=== PATIENT | female | born 1985 | race Caucasian/White ===

== ENCOUNTER 2018-08-21 21:48 | Emergency (ER) | payer OTHER, SELFPAY ==
[2018-08-21 22:05] VITALS: BP 155/91; PULSE 92; RESP 16; TEMP 36.7; O2SAT 100
--- NOTE | 2018-08-21 22:52 | W.ED.GENAD ---
Discharge Plan Disposition Patient Disposition: HOME Condition: Good Discharge Details Chief Complaint: Cellulitis Clinical Impression: Saphenous vein clot Primary Care Provider: Alec Ashton ED Provider: Kyle Cross [place] Meds and New Rx's Prescriptions: New Eliquis 5 mg tablet See Rx Instructions .ROUTE .COMPLEX Qty: 30 RF: 0 Continued levothyroxine 137 MCG tablet 137 mcg PO DAILY RF: 0 Mirena 20 mcg/24 hr (5 years) Intrauterine Device 1 insert INTRAUTERINE ONCE RF: 0 Discharge Instructions Additional Instructions: Workup tonight suggest a clot in the saphenous vein but because of size and location would treat as a deep clot. We will have you come back for ultrasound for confirmation in the morning. In the meantime we will start you on Eliquis which is the treatment for clot. Recommend Tylenol for pain, warm compresses to the area, elevation of leg as much as possible for the next couple of days. Not starting antibiotics at this point as you have a normal white count and no fever and the redness is probably related to inflammation not infection. Do not take nonsteroidal medications. You will need follow-up with your primary care next week. You will follow-up in the ED after ultrasound. You should return to ED if you develop chest pain, shortness of breath, fainting, fever. Stand Alone Forms: Work Release Referrals: Alec Ashton [Primary Care Provider] - Medical Decision Making Patient presenting with pain and redness behind the left knee medially. She is afebrile. She has no complaints of chest pain or shortness of breath. She has no calf tenderness. Differential includes saphenous vein clot versus abscess. Less likely related to Jamil's cyst but given the medial area doubt. test is negative. IV established and she is given Toradol for pain relief. Laboratory studies sent. Bedside ultrasound performed by me suggest that this is likely saphenous vein clot and not abscess. I am able to follow what appears to be the saphenous vein proximal and distal to the area of tenderness. The vein is compressible except in the area of tenderness. I do not think it is an abscess. CBC is fine. White count is normal. Platelets are normal. Kidney function normal. Initial coags normal. Long discussion with the patient in regards to blood thinners. Will have her come back for a formal ultrasound tomorrow. We will have her follow-up in the ED. We will start her on Eliquis in the meantime. While this is not a DVT it appears to be very proximal in the saphenous vein and appears to be quite large. Current recommendations are to treat as same as DVT even though technically saphenous vein thrombophlebitis. We will not start antibiotics at this point despite the redness. She is afebrile and has normal white count. We will have her do warm compresses, keep elevated and use Tylenol for pain. Since she is following up in the ED tomorrow can have a recheck to be sure the erythema is not progressing or she is having evidence of systemic illness. Will need follow up with PCP next week. Lab Data Lab results reviewed: Yes I reviewed the patient's lab results. HPI General Mode of arrival: ambulatory. Date/Time Provider Initiated Documentation: 08/21/18 22:31. Limitations to Documentation: no limitations. Information obtained by: patient. HPI Narrative: Patient presents to ED with pain and redness behind her left knee. She noticed a little bit of redness yesterday. Today she has had increasing pain and difficulty walking. Redness is a little bit worse. Pain seems to shoot down the back of her leg with walking. Otherwise it is isolated to the back of the knee where the redness is. She denies any fevers or chills. She denies chest pain or shortness of breath. She does not smoke. She is on Mirena. There is a family history of DVT and PE. She has never had one previously. She denies any trauma. She presents now for evaluation due to the increasing pain. Related Data Home Medications Medication Instructions Recorded Confirmed levothyroxine 137 mcg PO DAILY 04/12/14 08/21/18 Mirena 1 insert INTRAUTERINE ONCE 08/21/18 08/21/18 apixaban [Eliquis] See Rx Instructions .ROUTE 08/22/18 .COMPLEX #30 tab Previous Rx's Medication Instructions Recorded apixaban [Eliquis] See Rx Instructions .ROUTE 08/22/18 .COMPLEX #30 tab Allergies Allergy/AdvReac Type Severity Reaction Status Date / Time amoxicillin [Amoxicillin] Allergy Intermediate Hives Unverified 08/21/18 22:08 General Stated Complaint: Cellulitis STELLA: 3 Review of Systems Constitutional Denies chills, Denies fever(s), Denies headache(s), Denies malaise and Denies weakness Eyes Denies change in vision, Denies eye discharge, Denies irritation and Denies eye pain ENT Denies headache(s) and Denies neck pain Cardiovascular Denies chest pain, Denies pedal edema, Denies edema, Denies leg edema, Denies lightheadedness, Denies palpitations and Denies dyspnea Respiratory Denies cough, Denies hemoptysis and Denies dyspnea Gastrointestinal Denies abdominal pain, Denies melena, Denies hematochezia, Denies diarrhea, Denies nausea and Denies vomiting Genitourinary Denies abnormal vaginal bleeding, Denies hematuria, Denies urinary frequency, Denies difficulty voiding, Denies dysuria, Denies pelvic pain, Denies urinary urgency and Denies vaginal discharge Musculoskeletal Denies back pain, Denies myalgias, Denies arthralgias, Denies joint swelling, Denies neck pain, Denies numbness and Reports other (left leg pain) Integumentary/Breasts Reports erythema and Denies rash Neurologic Denies confusion, Denies headache(s), Denies numbness and Denies weakness Psychiatric Denies confusion Endocrine Denies palpitations [facility] Medical History Anemia (Chronic) Hypothyroidism (Chronic) Surgical History S/P cholecystectomy (Inactive) Ligation of fallopian tube (Inactive) Social History Smoking/Tobacco Use Status: Former Tobacco Use Exam Const General: cooperative and comfortable Nutritional Appearance: obese morbidly obese Orientation: alert and oriented x3 [facility] Head: normocephalic and atraumatic Neck Neck: normal visual inspection, trachea midline and supple Resp Effort & Inspection: normal respiratory effort Cardio Pulses: normal peripheral pulses Skin General skin exam: erythema (about a 3 by 6 cm area of redness medial posterior left knee) Rashes: no rashes Neuro General: alert, oriented x3, CN's II-XI intact bilaterally and normal sensation to monofilament Extrem General: full ROM, no calf tenderness, no edema and other (Very tender/firm mass in the erythematous region behind the left knee) Course Vital Signs Temperature 98.1 F 08/21/18 22:05 Pulse 92 H 08/21/18 22:05 Respiratory Rate 16 08/21/18 22:05 Blood Pressure 155/91 H 08/21/18 22:05 Pulse Oximetry 100 08/21/18 22:05 Temperature 98.1 F 08/21/18 22:05 Pulse 92 H 08/21/18 22:05 Respiratory Rate 16 08/21/18 22:05 Respiratory Effort 08/21/18 22:07 Blood Pressure 155/91 H 08/21/18 22:05 Pulse Oximetry 100 08/21/18 22:05 Oxygen Delivery Method Room Air 08/21/18 22:05 Oxygen Flow Rate 0 08/21/18 22:05 Pain Level 8 08/21/18 22:05
[2018-08-21 23:04] LABS: Abs Immature Grans 0.02 k/cumm (0.0-0.09); Absolute Basophil Count 0.02 k/cumm (0.0-0.2); Absolute Eosinophil Count 0.13 k/cumm (0.0-0.7); Absolute Lymphocyte Count 2.38 k/cumm (1.2-3.4); Absolute Monocyte Count 0.81 k/cumm (0.11-0.7); Absolute Neutrophil Count 6.35 k/cumm (1.2-6.7); Basophils % 0.2; Eosinophils % 1.3; HCT 37.6 % (36.0-46.0); HGB 12.1 g/dL (12.0-15.5); Immature Grans % 0.2; Lymphocytes % 24.5; Mean Corp. HGB Concentration 32.2 g/dL (32.0-36.0); Mean Corpuscular Hemoglobin 24.9 pg (27.0-33.0); Mean Corpuscular Volume 77.5 fL (80-95); Mean Platelet Volume 9.6 fL (8.0-11.0); Monocytes % 8.3; Neutrophils % 65.5; Platelet Count 330 x1000/uL (130-400); RBC 4.85 m/cumm (4.00-5.20); RBC Distribution Width 13.6 % (11.7-14.6); White Blood Cell Count 9.71 k/cumm (4.4-10.8)
[2018-08-21 23:10] LABS: Anion Gap 9.4 mmol/L (3-11); BUN 25 mg/dL (7-18); CO2 26.6 mmol/L (21.0-32.0); CREATININE 0.76 mg/dL (0.55-1.02); Calcium 9.2 mg/dL (8.5-10.1); Chloride 100 mmol/L (98-107); Glucose 90 mg/dL (70-100); Potassium 3.7 mmol/L (3.5-5.1); Sodium 136 mmol/L (136-145)
[2018-08-21] MEDS: Ketorolac 30 MG/ML VIAL IVP (23:21)
[2018-08-21 23:39] LABS: Prothrombin Time 9.7 sec (9.3-11.0)
[2018-08-22 00:03] VITALS: BP 123/63; PULSE 84; RESP 16; O2SAT 98
[2018-08-22] MEDS: Apixaban 5 MG TAB 10 MG PO (00:03)
== END 2018-08-22 00:19 | disposition home or self-care (01) ==
PROVIDERS: Emergency Provider Emergency Medicine; PCP Family Medicine
DX: I82.812 Embolism and thrombosis of superficial veins of left lower extremity (principal); Z83.2 Family history of diseases of the blood and blood-forming organs and certain disorders involving the immune mechanism
CPT/HCPCS: 36415; 80048; 81025; 96374; 99283; 85025; 85610; 85730; J1885

== ENCOUNTER 2018-08-22 09:32 | Outpatient (CLI) | payer OTHER, SELFPAY ==
--- NOTE | 2018-08-22 13:02 | DI.US_ITS ---
SYMPTOMS/DIAGNOSIS: LT LEG PAIN, REDNESS, BEDSIDE US SUGGESTS SAPHENOUS CLOT LEFT LEG ULTRASOUND: There is no evidence of DVT. Note is made of a superficial varicosity posterior to the distal thigh which contains visible thrombus. There is poor compression. The varicose vein lies above the knee. These findings were conveyed to the ER provider immediately following completion of the study.
== END 2018-08-22 09:52 ==
PROVIDERS: PCP Family Medicine; Visit Provider Emergency Medicine
DX: M79.605 Pain in left leg (principal); L53.9 Erythematous condition, unspecified; I83.892 Varicose veins of left lower extremity with other complications
CPT/HCPCS: 93971

== ENCOUNTER 2018-08-22 14:03 | Emergency (ER) | payer OTHER, SELFPAY ==
[2018-08-22 14:18] VITALS: BP 133/77; PULSE 76; RESP 16; TEMP 36.8; O2SAT 98
--- NOTE | 2018-08-22 15:40 | W.ED.GENAD ---
Discharge Plan Disposition Patient Disposition: HOME Condition: Stable Discharge Details Chief Complaint: Recheck Clinical Impression: Superficial thrombophlebitis Primary Care Provider: Alec Ashton ED Provider: Beltran Raya Home Meds and New Rx's Prescriptions: New ibuprofen [IBU] 600 mg tablet 600 mg PO QID PRN (Reason: pain) Qty: 20 RF: 0 Continued levothyroxine 137 MCG tablet 137 mcg PO DAILY RF: 0 Mirena 20 mcg/24 hr (5 years) Intrauterine Device 1 insert INTRAUTERINE ONCE RF: 0 Discontinued Eliquis 5 mg tablet See Rx Instructions .ROUTE .COMPLEX Qty: 30 RF: 0 Discharge Instructions Instructions: Superficial Thrombophlebitis (ED) Additional Instructions: Return to the emergency department for any new or significant worsening symptoms. Otherwise continue to use ibuprofen as directed and apply warm compresses. You may increase activity as tolerated by discomfort and follow-up with your primary care provider as already arranged. Stand Alone Forms: Work Release Referrals: Alec Ashton [Primary Care Provider] - (Keep your appointment as scheduled) Discharge Data Discharge Date/Time-TO BE ENTERED AT DEPARTURE: 08/22/18 15:55 Medical Decision Making Patient presenting to the emergency department chief complaint of left leg pain. Patient was seen in the emergency department last night and concern for possible DVT so patient was recommended for return today for ultrasound. Ultrasound imaging was performed and patient sent to the emergency department. Patient continues to complain of similar pain with no new or worsening symptoms. Physical exam shows significant discomfort to the posterior left distal thigh with palpable cord. Review of ultrasound imaging along with radiologist interpretation shows no evidence of DVT, no saphenous vein involvement, and appears to be a superficial thrombophlebitis associated with a varicose vein. No DVT and some localized redness that I do not feel is associated cellulitis but simple inflammatory response patient was placed up on ibuprofen 600 mg every 6 hours as needed for pain, and informed to perform warm compresses, and to keep her follow-up appointment with her primary care provider on August 28. Patient encouraged to return for any new or worsening symptoms which were thoroughly discussed with her. After discussion of diagnosis and plan of care patient has no further needs, questions, or concerns and states clear understanding to return to the emergency department for any worsening symptoms. Imaging Data Radiologic Study: Imaging: Ultrasound Radiologist's impression: There is no evidence of DVT. Note is made of a superficial varicosity posterior to the distal thigh which contains visible thrombus. There is poor compression. The varicose vein lies above the knee HPI General Mode of arrival: wheelchair. Date/Time Provider Initiated Documentation: 08/22/18 15:25. Limitations to Documentation: no limitations. Information obtained by: patient. History of Present Illness 32 year old F presents to the emergency department with the chief complaint of left leg, described as severe, Quality is described as sharp, and is localized to the left and upper extremity. and it has been constant. Patient notes no other symptoms.. Patient did receive the following treatments prior to arrival, none Related Data Home Medications Medication Instructions Recorded Confirmed levothyroxine 137 mcg PO DAILY 04/12/14 08/22/18 Mirena 1 insert INTRAUTERINE ONCE 08/21/18 08/22/18 ibuprofen [IBU] 600 mg PO QID PRN #20 tab 08/22/18 Previous Rx's Medication Instructions Recorded ibuprofen [IBU] 600 mg PO QID PRN #20 tab 08/22/18 Allergies Allergy/AdvReac Type Severity Reaction Status Date / Time amoxicillin [Amoxicillin] Allergy Intermediate Hives Unverified 08/21/18 22:08 General Stated Complaint: Recheck STELLA: 4 Review of Systems Constitutional Denies chills, Denies fever(s) and Denies headache(s) ENT Denies headache(s) Cardiovascular Denies chest pain, Denies irregular heart rhythm, Denies claudication, Denies leg edema, Denies lightheadedness and Denies dyspnea Respiratory Denies dyspnea Gastrointestinal Denies abdominal pain Musculoskeletal Reports as per HPI Neurologic Reports confusion and Denies headache(s) Psychiatric Reports confusion [facility] Medical History Anemia (Chronic) Hypothyroidism (Chronic) Surgical History Ligation of fallopian tube (Inactive) S/P cholecystectomy (Inactive) Social History Smoking/Tobacco Use Status: Former Tobacco Use Exam Const General: cooperative, healthy appearing, comfortable and no acute distress Orientation: alert, awake and oriented x3 Resp Effort & Inspection: normal respiratory effort and able to speak in complete sentences Cardio Rate: regular rate Rhythm: regular rhythm Pulses: normal peripheral pulses Neuro General: alert, awake, oriented x3, moves all extremities and no focal motor deficits Extrem General: normal exam except as noted Left lower extremity: hip/thigh Details: tenderness Location: other (Distal medial posterior thigh), normal ROM and other (Palpable cord Posterior medial distal thigh) and lower leg Course Vital Signs Temperature 36.8 C 08/22/18 14:18 Pulse 76 08/22/18 14:18 Respiratory Rate 16 08/22/18 14:18 Blood Pressure 133/77 08/22/18 14:18 Pulse Oximetry 98 08/22/18 14:18 Temperature 36.8 C 08/22/18 14:18 Temperature Source Skin 08/22/18 14:18 Pulse 76 08/22/18 14:18 Respiratory Rate 16 08/22/18 14:18 Respiratory Effort 08/22/18 14:22 Blood Pressure 133/77 08/22/18 14:18 Blood Pressure Position Sitting 08/22/18 14:18 Pulse Oximetry 98 08/22/18 14:18 Oxygen Delivery Method Room Air 08/22/18 14:18 Oxygen Flow Rate 0 08/22/18 14:18 Pain Level 9 08/22/18 14:18
--- NOTE | 2018-08-22 15:44 | ED.GENADUL_ITS ---
Discharge Plan Disposition Patient Disposition: HOME Condition: Stable Discharge Details Chief Complaint: Recheck Clinical Impression: Superficial thrombophlebitis Primary Care Provider: Alec Ashton ED Provider: Beltran Raya Home Meds and New Rx's Prescriptions: New ibuprofen [IBU] 600 mg tablet 600 mg PO QID PRN (Reason: pain) Qty: 20 RF: 0 Continued levothyroxine 137 MCG tablet 137 mcg PO DAILY RF: 0 Mirena 20 mcg/24 hr (5 years) Intrauterine Device 1 insert INTRAUTERINE ONCE RF: 0 Discontinued Eliquis 5 mg tablet See Rx Instructions .ROUTE .COMPLEX Qty: 30 RF: 0 Discharge Instructions Instructions: Superficial Thrombophlebitis (ED) Additional Instructions: Return to the emergency department for any new or significant worsening symptoms. Otherwise continue to use ibuprofen as directed and apply warm comp resses. You may increase activity as tolerated by discomfort and follow-up with your primary care provider as already arranged. Stand Alone Forms: Work Release Referrals: Alec Ashton [Primary Care Provider] - (Keep your appointment as scheduled) Discharge Data Discharge Date/Time-TO BE ENTERED AT DEPARTURE: 08/22/18 15:55 Medical Decision Making Patient presenting to the emergency department chief complaint of left leg pain. Patient was seen in the emergency department last night and concern for possible DVT so patient was recommended for return today for ultrasound. Ultrasound imaging was performed and patient sent to the emergency department. Patient continues to complain of similar pain with no new or worsening symptoms. Physical exam shows significant discomfort to the posterior left distal thigh with palpable cord. Review of ultrasound imaging along with radiologist interpretation shows no evidence of DVT, no saphenous vein involvement, and appears to be a superficial thrombophlebitis associated with a varicose vein. No DVT and some localized redness that I do not feel is associated cellulitis but simple inflammatory response patient was placed up on ibuprofen 600 mg every 6 hours as needed for pain, and informed to perform warm compresses, and to keep her follow-up appointment with her primary care provider on August 28. Patient encouraged to return for any new or worsening symptoms which were thoroughly discussed with her. After discussion of diagnosis and plan of care patient has no further needs, questions, or concerns and states clear understanding to return to the emergency department for any worsening symptoms. Imaging Data Radiologic Study: Imaging: Ultrasound Radiologist's impression: There is no evidence of DVT. Note is made of a superficial varicosity posterior to the distal thigh which contains visible thrombus. There is poor compression. The varicose vein lies above the knee HPI General Mode of arrival: wheelchair . Date/Time Provider Initiated Documentation: 08/22/18 15:25 . Limitations to Documentation: no limitations . Information obtained by: patient . History of Present Illness 32 year old F presents to the emergency department with the chief complaint of left leg, described as severe, Quality is described as sharp, and is localized to the left and upper extremity. and it has been constant. Patient notes no other symptoms.. Patient did receive the following treatments prior to arrival, none Related Data Home Medications Medication Instructions Recorded Confirmed levothyroxine 137 mcg PO DAILY 04/12/14 08/22/18 Mirena 1 insert INTRAUTERINE ONCE 08/21/18 08/22/18 ibuprofen [IBU] 600 mg PO QID PRN #20 tab 08/22/18 Previous Rx's Medication Instructions Recorded ibuprofen [IBU] 600 mg PO QID PRN #20 tab 08/22/18 Allergies Allergy/AdvReac Type Severity Reaction Status Date / Time amoxicillin [Amoxicillin] Allergy Intermediate Hives Unverified 08/21/18 22:08 General Stated Complaint: Recheck STELLA: 4 Review of Systems Constitutional Denies chills, Denies fever(s) and Denies headache(s) ENT Denies headache(s) Cardiovascular Denies chest pain, Denies irregular heart rhythm, Denies claudication, Denies leg edema, Denies lightheadedness and Denies dyspnea Respiratory Denies dyspnea Gastrointestinal Denies abdominal pain Musculoskeletal Reports as per HPI Neurologic Reports confusion and Denies headache(s) Psychiatric Reports confusion [facility] Medical History Anemia (Chronic) Hypothyroidism (Chronic) Surgical History Ligation of fallopian tube (Inactive) S/P cholecystectomy (Inactive) Social History Smoking/Tobacco Use Status: Former Tobacco Use Exam Const General: cooperative, healthy appearing, comfortable and no acute distress Orientation: alert, awake and oriented x3 Resp Effort & Inspection: normal respiratory effort and able to speak in complete sentences Cardio Rate: regular rate Rhythm: regular rhythm Pulses: normal peripheral pulses Neuro General: alert, awake, oriented x3, moves all extremities and no focal motor deficits Extrem General: normal exam except as noted Left lower extremity: hip/thigh Details: tenderness Location: other (Distal medial posterior thigh), normal ROM and other (Palpable cord Posterior medial distal thigh) and lower leg Course Vital Signs Temperature 36.8 C 08/22/18 14:18 Pulse 76 08/22/18 14:18 Respiratory Rate 16 08/22/18 14:18 Blood Pressure 133/77 08/22/18 14:18 Pulse Oximetry 98 08/22/18 14:18 Temperature 36.8 C 08/22/18 14:18 Temperature Source Skin 08/22/18 14:18 Pulse 76 08/22/18 14:18 Respiratory Rate 16 08/22/18 14:18 Respiratory Effort 08/22/18 14:22 Blood Pressure 133/77 08/22/18 14:18 Blood Pressure Position Sitting 08/22/18 14:18 Pulse Oximetry 98 08/22/18 14:18 Oxygen Delivery Method Room Air 08/22/18 14:18 Oxygen Flow Rate 0 08/22/18 14:18 Pain Level 9 08/22/18 14:18
[2018-08-22] MEDS: Ibuprofen 600 MG TAB PO (15:55)
== END 2018-08-22 15:55 | disposition home or self-care (01) ==
PROVIDERS: Emergency Provider Nurse Practitioner Family; PCP Family Medicine
DX: I80.02 Phlebitis and thrombophlebitis of superficial vessels of left lower extremity (principal); Z71.2 Person consulting for explanation of examination or test findings
CPT/HCPCS: 99283; 99282

== ENCOUNTER 2019-03-26 13:57 | Outpatient (REF) | payer OTHER, SELFPAY ==
--- NOTE | 2019-03-26 12:40 | PAPFT_PTH ---
PATIENT: Theresa Rose LOC: [facility] U#:[id number] AGE/SX: 33/F ROOM: RE03/26/[address]: Alec Ashton : 1985 BED: DIS: 03/26/2019 SPEC #: [id number] RECD: 03/27/19 13:11 STATUS: [place]ETTE REQ #: [id number] ARTEMIO: 03/26/19 12:[address]: Alec Ashton DEPT: [facility] Cytology RECD BY: Shell Meeks Tissues: 1 - CX/ENDOCX FOR PAP SMEARS Procedures: PAP THIN PREP/UVM Screening HPV DNA PROBE Comments: [id number]
== END 2019-03-26 14:17 ==
LOC: NCHCN 13:57
PROVIDERS: PCP Family Medicine; Visit Provider Family Medicine
DX: Z00.00 Encounter for general adult medical examination without abnormal findings (principal); Z12.4 Encounter for screening for malignant neoplasm of cervix; Z11.51 Encounter for screening for human papillomavirus (HPV)
CPT/HCPCS: 88142; 87624

== ENCOUNTER 2019-05-19 07:26 | Outpatient (CLI) | payer OTHER, SELFPAY ==
[2019-05-19 08:41] LABS: HCT 36.2 % (36.0-46.0); HGB 11.6 g/dL (12.0-15.5); Mean Corpuscular Hemoglobin 25.7 pg (27.0-33.0); Mean Corpuscular Volume 80.3 fL (80-95); Platelet Count 322 x1000/uL (130-400); RBC 4.51 m/cumm (4.00-5.20); RBC Distribution Width 13.9 % (11.7-14.6); White Blood Cell Count 5.66 k/cumm (4.4-10.8)
[2019-05-19 08:56] LABS: Iron 36 ug/dL (50-175); Total Iron Binding Capacity 317 ug/dL (250-450); Transferrin Sat 11 % (15-50)
[2019-05-19 09:11] LABS: Anion Gap 6.1 mmol/L (3-11); BUN 11 mg/dL (7-18); CO2 29.9 mmol/L (21.0-32.0); CREATININE 0.79 mg/dL (0.55-1.02); Calcium 9.1 mg/dL (8.5-10.1); Chloride 103 mmol/L (98-107); Ferritin 94 ng/mL (8-388); Glucose 103 mg/dL (70-100); Potassium 4.7 mmol/L (3.5-5.1); Sodium 139 mmol/L (136-145); TSH (W/Ref FT4) 2.77 uIU/mL (0.36-3.74)
== END 2019-05-19 07:46 ==
PROVIDERS: PCP Family Medicine; Visit Provider Family Medicine
DX: D50.9 Iron deficiency anemia, unspecified (principal); R60.0 Localized edema
CPT/HCPCS: 36415; 80048; 85027; 82728; 83540; 83550; 83735; 84443

== ENCOUNTER 2019-06-12 15:16 | Emergency (ER) | payer OTHER, SELFPAY ==
[2019-06-12 15:31] VITALS: BP 129/82; PULSE 71; RESP 16; TEMP 36.5; O2SAT 100
--- NOTE | 2019-06-12 15:47 | ED.GENADUL_ITS ---
Discharge Plan Disposition Patient Disposition: HOME Condition: Stable Discharge Details Chief Complaint: Abd Prob Clinical Impression: Abdominal pain Primary Care Provider: Alec Ashton ED Provider: Danyel Andrews Home Meds and New Rx's Prescriptions: New ondansetron 4 mg tablet,disintegrating 4 mg PO Q8H PRN (Reason: nausea and vomiting) Qty: 30 RF: 0 Continued levothyroxine 137 MCG tablet 137 mcg PO DAILY RF: 0 Mirena 20 mcg/24 hr (5 years) Intrauterine Device 1 insert INTRAUTERINE ONCE RF: 0 ibuprofen [IBU] 600 mg tablet 600 mg PO QID PRN (Reason: pain) Qty: 20 RF: 0 Discharge Instructions Instructions: Abdominal Pain (ED) Additional Instructions: your lab work showed no concerning findings your cat scan showed evidence of a viral gastroenteritis if symptoms continue in a week follow up with your primary care provider and if you feel more ill, have persistent vomit or severe worsening pain return to the emergency department Stand Alone Forms: Work Release Medical Decision Making 33 yo female with prior hx of cholecystectomy comes in with abdominal pain. She states she has had loose stools and nausea for 2 weeks then today developed right sided abdominal pain. Has pain in the ruq and rlq without guarding or rebound. No chest pain, denies vaginal bleeding or discharge, no urinary symptoms. Given location of pain will obtain lab work and imaging to eval for appendicitis and sbo among other pathology pt's labs unremarkable and ct shows mesenteric adenitis otherwise no acute findings. Will d/c home and advised f/u with pcp, return precautions given,non longer has tenderness in the abdomen Differential Diagnosis Differential Diagnosis: sbo, diverticulitis, appendicitis Imaging Data Radiologic Study: Attestation: I personally reviewed and interpreted this imaging study as follows: Imaging: CT Scan Radiologist's impression: IMPRESSION: 1. Mesenteric enteritis. 2. IUD in place. 3. Cholecystectomy. Common bile duct measures 1.1 cm. Lab Data Lab results reviewed: Yes I reviewed the patient's lab results. HPI General Mode of arrival: ambulatory . Date/Time Provider Initiated Documentation: 06/12/19 15:32 . Limitations to Documentation: no limitations . Information obtained by: patient . History of Present Illness 33 year old F presents to the emergency department with the chief complaint of abdominal pain, described as moderate, Quality is described as aching, Patient started experiencing this day(s) (1) and it has been constant. No relieving factors improve symptom(s), No exacerbating factors reported . Patient did receive the following treatments prior to arrival, none Related Data Home Medications Medication Instructions Recorded Confirmed levothyroxine 137 mcg PO DAILY 04/12/14 06/12/19 Mirena 1 insert INTRAUTERINE ONCE 08/21/18 06/12/19 ibuprofen [IBU] 600 mg PO QID PRN #20 tab 08/22/18 06/12/19 ondansetron 4 mg PO Q8H PRN #30 tab 06/12/19 Previous Rx's Medication Instructions Recorded ibuprofen [IBU] 600 mg PO QID PRN #20 tab 08/22/18 ondansetron 4 mg PO Q8H PRN #30 tab 06/12/19 Allergies Allergy/AdvReac Type Severity Reaction Status Date / Time amoxicillin [Amoxicillin] Allergy Intermediate Hives Unverified 06/12/19 15:34 General Stated Complaint: Abd Prob STELLA: 3 Review of Systems Review of Systems ROS Unobtainable: All systems reviewed & are unremarkable except as noted in HPI and below Constitutional Constitutional: Denies chills, Denies fever(s) and Denies weakness ENT Ears, Nose, Mouth, and Throat: Denies change in voice Cardiovascular Cardiovascular: Denies chest pain and Denies dyspnea Respiratory Respiratory: Denies dyspnea Musculoskeletal Musculoskeletal: Denies joint swelling Neurologic Neurologic: Denies weakness [facility] Social History Smoking/Tobacco Use Status: Former Tobacco Use Alcohol Intake: never Drug use: Occasionally Substance use type: marijuana Do you feel safe in your relationship?: Yes Exam Const General: no acute distress Orientation: alert HENMT Head: normal to inspection Ears: external ears normal General nose exam: external nose normal Mouth: moist mucous membranes Eyes General: appearance normal, both eyes and all related structures Neck Neck: normal visual inspection Resp Effort & Inspection: normal respiratory effort and able to speak in complete sentences Cardio Rate: regular rate GI Palpation: soft Skin General skin exam: no rashes or lesions noted Neuro General: alert and oriented x3 Extrem General: normal to inspection Psych Mental Status: mental status grossly normal Course Vital Signs Vital signs: Vital Signs Temperature 36.5 C 06/12/19 15:31 Pulse 71 06/12/19 15:31 Respiratory Rate 16 06/12/19 15:31 Blood Pressure 129/82 06/12/19 15:31 Pulse Oximetry 100 06/12/19 15:31 Temperature 36.5 C 06/12/19 15:31 Temperature Source Skin 06/12/19 15:31 Pulse 71 06/12/19 15:31 Respiratory Rate 16 06/12/19 15:31 Respiratory Effort Non-Labored 06/12/19 15:31 Blood Pressure 129/82 06/12/19 15:31 Blood Pressure Position Sitting 06/12/19 15:31 Pulse Oximetry 100 06/12/19 15:31 Oxygen Delivery Method Room Air 06/12/19 15:31 Oxygen Flow Rate 0 06/12/19 15:31 Pain Level 8 06/12/19 15:31
[2019-06-12] MEDS: Normal Saline 1,000 ML 1000 ML IV (16:15)
[2019-06-12] MEDS: Normal Saline Flush 10 ML SYR IVP (16:15)
[2019-06-12] MEDS: Ketorolac 15 MG/ML VIAL IVP (16:26)
[2019-06-12] MEDS: Ondansetron 4 MG/2 ML VIAL IVP (16:27)
[2019-06-12 16:32] LABS: Bilirubin Negative (Negative); Blood Large (Negative); Clarity Sl Cloudy (Clear); Glucose Negative (Negative); Ketones Negative (Negative); Leukocyte Esterase Negative (Negative); Nitrite Negative (Negative); Specific Gravity 1.025 (1.005-1.025); Urobilinogen 0.2 EU/dL (Up TO 0.2)
[2019-06-12 16:39] LABS: ALT 24 U/L (14-59); AST 16 U/L (15-37); Albumin 3.4 g/dL (3.4-5.0); Alkaline Phosphatase 73 U/L (46-116); Anion Gap 7.8 mmol/L (3-11); BUN 14 mg/dL (7-18); Bilirubin, Total 0.3 mg/dL (0.2-1.0); CO2 27.2 mmol/L (21.0-32.0); CREATININE 0.74 mg/dL (0.55-1.02); Calcium 8.2 mg/dL (8.5-10.1); Chloride 105 mmol/L (98-107); Glucose 91 mg/dL (70-100); Lipase 76 U/L (73-393); Magnesium 1.6 mg/dL (1.8-2.4); Potassium 3.4 mmol/L (3.5-5.1); Sodium 140 mmol/L (136-145); Total Protein 6.9 g/dL (6.4-8.2)
[2019-06-12] MEDS: Omnipaque 350 MG/ML 100 ML BTL IJ (16:39)
[2019-06-12 16:44] LABS: Abs Immature Grans 0.02 k/cumm (0.0-0.09); Absolute Basophil Count 0.02 k/cumm (0.0-0.2); Absolute Eosinophil Count 0.06 k/cumm (0.0-0.7); Absolute Lymphocyte Count 1.27 k/cumm (1.2-3.4); Absolute Monocyte Count 0.61 k/cumm (0.11-0.7); Absolute Neutrophil Count 5.76 k/cumm (1.2-6.7); Basophils % 0.3; Eosinophils % 0.8; HCT 35.6 % (36.0-46.0); HGB 11.3 g/dL (12.0-15.5); Immature Grans % 0.3; Lymphocytes % 16.4; Mean Corp. HGB Concentration 31.7 g/dL (32.0-36.0); Mean Corpuscular Hemoglobin 25.1 pg (27.0-33.0); Mean Corpuscular Volume 79.1 fL (80-95); Mean Platelet Volume 9.8 fL (8.0-11.0); Monocytes % 7.9; Neutrophils % 74.3; Platelet Count 323 x1000/uL (130-400); RBC Distribution Width 13.2 % (11.7-14.6); White Blood Cell Count 7.74 k/cumm (4.4-10.8)
--- NOTE | 2019-06-12 16:45 | DI.CT_ITS ---
EXAM: CT ABDOMEN PELVIS W CLINICAL HISTORY: right sided abdominal pain TECHNIQUE: Post IV contrast. No oral contrast. COMPARISON: ABD PELVIS WO CONTRAST from 04/19/2014 FINDINGS: The heart size is normal. The lung bases are clear. Patient is status post cholecystectomy. The s pleen, pancreas, adrenals and kidneys are unremarkable. There are mildly enlarged mesenteric lymph no fer and slight stranding in the mesenteric fat, consistent with mesenteric adenitis. There is no bow el dilatation or inflammatory change. The appendix appears normal. An IUD is incidentally noted in the uterus. The bladder is unremarkable. IMPRESSION: Mesenteric adenitis.
[2019-06-12 17:02] LABS: Bacteria Negative HPF (Negative); C & S Indicated? No; Casts Negative LPF (Negative); Crystals Negative HPF (Negative); Epithelial Cells Moderate HPF (Negative); Mucus Negative (Negative); Other Cells Negative (Negative); RBC 20-50 (0-2); WBC Negative HPF (0-5)
[2019-06-12] MEDS: Prochlorperazine 10 MG/2 ML VIAL IVP (17:23)
--- NOTE | 2019-06-12 17:26 | DI.VRAD_ITS ---
PROCEDURE INFORMATION: Exam: CT Abdomen And Pelvis With Contrast Exam date and time: 06/12/2019 3:47 PM Clinical history: 33 years old, female; Localized; Right; Patient HX: Abdominal pain x2 weeks, pain increasing. TECHNIQUE: Imaging protocol: Computed tomography of the abdomen and pelvis with intravenous contrast. Radiation optimization: All CT scans at this facility use at least one of these dose optimization techniques: automated exposure control; mA and/or kV adjustment per patient size (includes targeted exams where dose is matched to clinical indication); or iterative reconstruction. Contrast material: OMNIPAQUE 350; Contrast volume: 100 ml; Contrast route: IV; COMPARISON: CT ABD PELVIS WO CONTRAST 19/04/2014 08:03 FINDINGS: Lungs: Lung bases are clear. Liver: Normal. No mass. Gallbladder and bile ducts: Cholecystectomy. Distended common bile duct measuring 1.1 cm. Pancreas: Normal. No ductal dilation. Spleen: Normal. No splenomegaly. Adrenals: Normal. No mass. Kidneys and ureters: Normal. No hydronephrosis. Stomach and bowel: Unremarkable. No obstruction. No mucosal thickening. Appendix: No evidence of appendicitis. Intraperitoneal space: No free air in the abdomen. Vasculature: Unremarkable. No abdominal aortic aneurysm. Lymph nodes: Multiple enlarged mesenteric lymph nodes consistent with mesenteric enteritis. Bladder: Unremarkable as visualized. Reproductive: IUD in place. Bones/joints: Mild degenerative changes of the thoracic and lumbar spine. Soft tissues: Unremarkable. IMPRESSION: 1. Mesenteric enteritis. 2. IUD in place. 3. Cholecystectomy. Common bile duct measures 1.1 cm. Dictated and Authenticated by: Harper Meza MD. Ordering:ZAYDA Montaño MD
[2019-06-12 17:44] VITALS: BP 104/54; PULSE 68; TEMP 36.9; O2SAT 97
[2019-06-12 17:47] VITALS: BP 104/54; PULSE 68; TEMP 36.9; O2SAT 97
== END 2019-06-12 17:54 | disposition home or self-care (01) ==
PROVIDERS: Emergency Provider Emergency Medicine; PCP Family Medicine
DX: R10.11 Right upper quadrant pain (principal); R10.31 Right lower quadrant pain; R19.7 Diarrhea, unspecified; Z98.890 Other specified postprocedural states
CPT/HCPCS: 36415; 80053; 81025; 83690; 96361; 96374; 96375; 99285; 74177; 81003; 81015; 83735; 85025; 99284; J0780; J1885; J2405; J3490

== ENCOUNTER 2020-04-12 07:56 | Outpatient (REF) | payer OTHER, SELFPAY ==
[2020-04-12 20:14] LABS: Iron 54 ug/dL (50-170); Magnesium 1.9 mg/dL (1.8-2.4); TSH (W/Ref FT4) 1.72 uIU/mL (0.36-3.74); Total Iron Binding Capacity 318 ug/dL (250-450); Transferrin Sat 17 % (15-50)
== END 2020-04-12 08:16 ==
LOC: NCHCN 07:56
PROVIDERS: PCP Family Medicine; Visit Provider Family Medicine
DX: E83.42 Hypomagnesemia (principal); E03.9 Hypothyroidism, unspecified; D50.9 Iron deficiency anemia, unspecified
CPT/HCPCS: 83540; 83550; 83735; 84443

== ENCOUNTER 2020-10-27 14:33 | Outpatient (REF) | payer BC, SELFPAY ==
[2020-10-27 15:47] LABS: HCT 39.3 % (36.0-46.0); HGB 12.3 g/dL (11.2-15.7); MCH 25.2 pg (27.0-33.0); MCHC 31.3 % (32.0-36.0); MCV 80.4 fL (80-95); MPV 10.2 fL (8.0-11.0); Platelet Count 358 10^3/uL (130-400); RBC 4.89 10^6/uL (3.93-5.22); RDW 13.8 % (11.7-14.6); RDW-SD 40.1 fL; WBC 9.41 10^3/uL (4.4-10.8)
[2020-10-27 16:03] LABS: Anion Gap 8.9 mmol/L (3-11); BUN 14 mg/dL (7-18); CO2 26.1 mmol/L (21.0-32.0); CREATININE 0.7 mg/dL (0.55-1.02); Calcium 9.1 mg/dL (8.5-10.1); Calculated LDL 94 mg/dL (<100); Chloride 103 mmol/L (98-107); Cholesterol 155 mg/dL (<200); Glucose 85 mg/dL (74-106); HDL Cholesterol 49 mg/dL (40-60); Sodium 138 mmol/L (136-145); TSH (W/Ref FT4) 2.28 uIU/mL (0.36-3.74); Triglyceride 61 mg/dL (<150)
[2020-10-27 16:14] LABS: Hemoglobin A1C 5.4 % (<5.7)
[2020-10-28 09:40] LABS: Hepatitis C Ab w Rflx HCV PCR Negative (Negative)
== END 2020-10-27 14:34 | disposition home or self-care (01) ==
LOC: NCHCN 14:33
PROVIDERS: PCP Family Medicine; Visit Provider Family Medicine
DX: E03.9 Hypothyroidism, unspecified (principal); Z00.00 Encounter for general adult medical examination without abnormal findings; F41.9 Anxiety disorder, unspecified; Z13.1 Encounter for screening for diabetes mellitus; R60.0 Localized edema; D50.9 Iron deficiency anemia, unspecified; Z11.59 Encounter for screening for other viral diseases; Z13.220 Encounter for screening for lipoid disorders
CPT/HCPCS: 80048; 80061; 85027; 86803; 83036; 84443

== ENCOUNTER 2021-01-11 07:54 | Emergency (ER) | payer OTHER, SELFPAY ==
[2021-01-11 08:16] VITALS: BP 138/80; PULSE 91; RESP 22; TEMP 36.2; O2SAT 100
--- NOTE | 2021-01-11 08:30 | DI.RAD_ITS ---
Exam(s) XR KNEE RT 3V AP,LAT,JOHNATHAN EXAM: XR KNEE RT 3V AP,LAT,JOHNATHAN CLINICAL HISTORY: right knee pain. TECHNIQUE: 2D digital imaging was performed. COMPARISON: CR RIGHT KNEE 3 VIEWS from 07/13/2016 FINDINGS: The lateral view is suboptimally positioned. The patellofemoral joint is not well profiled. No frac ture is visible. Are severe degenerative changes of the patellofemoral joint. The femoral tibial amber int spaces are well maintained. Periarticular spurring is seen at the femoral condyles and tibial pl ateaus as well as tibial spines and femoral intercondylar notch.. IMPRESSION: Degenerative changes. No acute abnormality. DATA REPOSITORY: RADIATION DOSE DELIVERED:
[2021-01-11] MEDS: Ibuprofen 600 MG TAB PO (08:40)
[2021-01-11] MEDS: oxyCODONE 5 mg/Acetaminophen 325 mg TAB 2 TAB PO (08:41)
--- NOTE | 2021-01-11 09:04 | ED.GENADUL_ITS ---
Discharge Plan Disposition Patient Disposition: HOME Condition: Good Discharge Details Clinical Impression: Pain in right knee Primary Care Provider: Alec Ashton ED Provider: Shell Cleveland Home Meds and New Rx's Prescriptions: New oxycodone 5 mg capsule 5 mg PO BID PRNQty: 2 RF: 0 diclofenac sodium 3 % gel 1 applic topical BID Qty: 100 RF: 0 ibuprofen 600 mg tablet 600 mg PO Q8H PRNQty: 20 RF: 0 Continued levothyroxine 137 MCG tablet 137 mcg PO DAILY RF: 0 Mirena 20 mcg/24 hr (5 years) Intrauterine Device 1 insert INTRAUTERINE ONCE RF: 0 sertraline 50 mg tablet 50 mg PO DAILY RF: 0 ibuprofen [IBU] 600 mg tablet 600 mg PO QID PRN (Reason: pain) Qty: 20 RF: 0 ondansetron 4 mg tablet,disintegrating 4 mg PO Q8H PRN (Reason: nausea and vomiting) Qty: 30 RF: 0 Discharge Instructions Instructions: Knee Pain (ED) Additional Instructions: Follow-up with orthopedics Use an [id number] knee brace, the pharmacy will have 1 that will work well Take ibuprofen prescribed 600 mg every 8 hours with food Take Tylenol 500 to 650 mg every hours, do not take more than 3 times daily Ice to affected area as needed for swelling and discomfort Weightbearing as tolerated Stand Alone Forms: Work Release Referrals: Berlin Fields MD [MD CONSULTING PHYSICIAN] - Medical Decision Making Patient will be placed on ibuprofen and Tylenol for home She is given crutches and will follow up with PCP and Ortho She was given 2 tablets of oxycodone with rest discussed including inability to operate a vehicle for 8 hours taking this medication increased risk of addiction She will return should she have new or worsening complaints There is no evidence of septic joint, clinical evaluation Discharge home condition stable vitals Differential Diagnosis Differential Diagnosis: DVT, effusion, meniscal tear, fracture Medical Records Medical records reviewed: Yes I reviewed the patient's medical records. HPI General Mode of arrival: ambulatory . Date/Time Provider Initiated Documentation: 01/11/21 07:58 . Limitations to Documentation: no limitations . Information obtained by: patient . HPI Narrative: 35-year-old female with history of hypothyroidism presents with chronic right knee pain with acute exacerbation today. She states she was going stairs and felt a pop in her right knee. She states she got the railing and for movement had difficulty walking but was able to climb the steps. She sat down at the top for approximately 30 minutes for a training session and then when she tried and, she was unable to secondary to pain. She denies any weakness. She denies any calf pain or swelling. She denies any chest pain or shortness of breath. She denies any fever or chills. She denies any numbness or tingling. Related Data Home Medications Medication Instructions Recorded Confirmed levothyroxine 137 mcg PO DAILY 04/12/14 01/11/21 Mirena 1 insert INTRAUTERINE ONCE 08/21/18 01/11/21 ibuprofen [IBU] 600 mg PO QID PRN #20 tab 08/22/18 01/11/21 ondansetron 4 mg PO Q8H PRN #30 tab 06/12/19 01/11/21 diclofenac sodium 1 applic TOPICAL BID #100 g 01/11/21 ibuprofen 600 mg PO Q8H PRN #20 tab 01/11/21 oxycodone 5 mg PO BID PRN #2 cap 01/11/21 sertraline 50 mg PO DAILY 01/11/21 01/11/21 Previous Rx's Medication Instructions Recorded ibuprofen [IBU] 600 mg PO QID PRN #20 tab 08/22/18 ondansetron 4 mg PO Q8H PRN #30 tab 06/12/19 diclofenac sodium 1 applic TOPICAL BID #100 g 01/11/21 ibuprofen 600 mg PO Q8H PRN #20 tab 01/11/21 oxycodone 5 mg PO BID PRN #2 cap 01/11/21 Allergies Allergy/AdvReac Type Severity Reaction Status Date / Time amoxicillin [Amoxicillin] Allergy Intermediate Hives Unverified 01/11/21 08:17 General Stated Complaint: Orthopedic STELLA: 4 Review of Systems Narrative: Review of systems obtained x7 aside from where indicated in HPI [facility] Medical History (Updated 01/11/21 @ 10:00 by KEVIN Fajardo) Anemia Hypothyroidism Surgical History Ligation of fallopian tube S/P cholecystectomy Social History Smoking/Tobacco Use Status: Former Tobacco Use Smoking risk assessment performed?: Yes Alcohol Intake: never Drug use: Occasionally Substance use type: marijuana Do you feel safe in your relationship?: Yes Exam Resp Effort & Inspection: normal respiratory effort Cardio Rate: regular rate Extrem Other: Neurovascularly intact, tenderness with palpation to the knee, no tenderness to the popliteal or calf region. No tenderness to thigh. No obvious joint laxity. Tenderness to palpation to lateral and medial knee, no evidence of patellar tendon injury. No obvious effusion. Course Vital Signs Vital signs: Vital Signs Temperature 36.2 C L 01/11/21 08:16 Pulse 91 H 01/11/21 08:16 Respiratory Rate 22 01/11/21 08:16 Blood Pressure 138/80 01/11/21 08:16 Pulse Oximetry 100 01/11/21 08:16 Temperature 36.2 C L 01/11/21 08:16 Temperature Source Skin 01/11/21 08:16 Pulse 91 H 01/11/21 08:16 Respiratory Rate 22 01/11/21 08:16 Respiratory Effort Non-Labored 01/11/21 08:19 Blood Pressure 138/80 01/11/21 08:16 Blood Pressure Position Sitting 01/11/21 08:16 Pulse Oximetry 100 01/11/21 08:16 Oxygen Delivery Method Room Air 01/11/21 08:16 Oxygen Flow Rate 0 01/11/21 08:16 Pain Level 10 01/11/21 08:41
== END 2021-01-11 10:19 | disposition home or self-care (01) ==
PROVIDERS: Emergency Provider Physician Assistant; PCP Family Medicine
DX: M25.561 Pain in right knee (principal); G89.29 Other chronic pain
CPT/HCPCS: 73562; 99283

== ENCOUNTER 2021-01-26 14:03 | Outpatient (CLI) | payer OTHER, SELFPAY ==
--- NOTE | 2021-01-26 14:00 | DI.RAD_ITS ---
Exam(s) XR KNEE RT 1V EXAM: XR KNEE RT 1V CLINICAL HISTORY: F/u. TECHNIQUE: 2D digital imaging was performed. COMPARISON: CR XR KNEE RT 3V AP,LAT,JOHNATHAN from 01/11/2021 FINDINGS: There is lateral tilt of the patella with narrowing of the lateral patellofemoral joint. Periarticul ar spurring is seen at the lateral patella. The soft tissues are unremarkable. IMPRESSION: DATA REPOSITORY: RADIATION DOSE DELIVERED:
== END 2021-01-26 14:04 | disposition home or self-care (01) ==
LOC: DIORS 14:04
PROVIDERS: PCP Family Medicine; Referring Provider Family Medicine; Visit Provider Student in an Organized Health Care Education/Training Program
DX: M25.561 Pain in right knee (principal); M22.8X1 Other disorders of patella, right knee; M17.11 Unilateral primary osteoarthritis, right knee
CPT/HCPCS: 73560

== ENCOUNTER 2021-02-08 00:33 | Outpatient (CLI) | payer OTHER, SELFPAY ==
--- NOTE | 2021-02-08 08:30 | DI.MRI_ITS ---
Exam(s) MR LOWER JOINT RT WO EXAM: MR LOWER JOINT RT WO CLINICAL HISTORY: R KNEE INJURY, internal derangement rt knee, M23.91. TECHNIQUE: Multiplanar multisequence MRI was performed. COMPARISON: CR XR KNEE RT 1V from 01/26/2021 FINDINGS: Exam limited by patient motion artifact and patient body habitus. BONES: There is no fracture or contusion pattern. JOINTS: Tricompartment degenerative changes are present with periarticular spurring and cartilage thi nning. The findings are most marked at the patellofemoral joint. There is a small effusion. TENDONS: Extensor mechanism: Unremarkable. Medial retinaculum: Unremarkable. Lateral retinaculum: Unremarkable. Popliteus: Unremarkable. MUSCLES: Unremarkable. MENISCI: There is degenerative signal in the medial meniscus, but no evidence of a tear. No evidence of a lateral meniscal tear. SOFT TISSUES: Venous varicosities are seen in the medial knee. There is edema seen in the soft tissu es about the knee particularly anteriorly. This may represent a prepatellar bursitis. LIGAMENTS: Anterior Cruciate: Unremarkable. Posterior Cruciate: Unremarkable. Medial Collateral:No evidence of a tear. Lateral Collateral: No evidence of a tear. OTHER: IMPRESSION: 1. Examination limited by patient motion artifact and body habitus. 2. No evidence of a meniscal or ligament tear. 3. Prepatellar bursitis and small joint effusion. 4. Tricompartment osteoarthritis. 5. Degenerative changes in the medial meniscus. DATA REPOSITORY:
== END 2021-02-08 00:53 ==
PROVIDERS: PCP Family Medicine; Visit Provider Student in an Organized Health Care Education/Training Program
DX: M70.41 Prepatellar bursitis, right knee (principal); M25.461 Effusion, right knee; M17.11 Unilateral primary osteoarthritis, right knee; M23.91 Unspecified internal derangement of right knee
CPT/HCPCS: 73721

== ENCOUNTER 2021-12-06 13:07 | Outpatient (REF) | payer SELFPAY ==
[2021-12-06 16:33] LABS: Magnesium 2.1 mg/dL (1.8-2.4); TSH (W/Ref FT4) 2.44 uIU/mL (0.36-3.74)
== END 2021-12-06 13:08 | disposition home or self-care (01) ==
LOC: NCHCN 13:07
PROVIDERS: PCP Family Medicine; Visit Provider Family Medicine
DX: E03.9 Hypothyroidism, unspecified (principal); E83.42 Hypomagnesemia
CPT/HCPCS: 83735; 84443

== ENCOUNTER 2023-08-10 16:05 | Outpatient (REF) | payer BC, SELFPAY ==
[2023-08-10 16:08] LABS: Anion Gap 6.8 mmol/L (3-11); BUN 19 mg/dL (7-18); CO2 30.2 mmol/L (21.0-32.0); CREATININE 0.8 mg/dL (0.55-1.02); Calcium 9.3 mg/dL (8.5-10.1); Chloride 103 mmol/L (98-107); Estimated GFR 96.66 (mL/min/1.73m2); Glucose 98 mg/dL (74-106); Magnesium 2.1 mg/dL (1.8-2.4); Sodium 140 mmol/L (136-145)
== END 2023-08-10 16:06 | disposition home or self-care (01) ==
LOC: NCHCN 16:05
PROVIDERS: PCP Family Medicine; Visit Provider Family Medicine
DX: E03.9 Hypothyroidism, unspecified (principal); E83.42 Hypomagnesemia; Z79.899 Other long term (current) drug therapy; Z51.81 Encounter for therapeutic drug level monitoring
CPT/HCPCS: 80048; 83735; 84443

== ENCOUNTER 2023-11-09 15:41 | Outpatient (REF) | payer BC, SELFPAY ==
--- NOTE | 2023-11-09 12:15 | PAPFT_PTH ---
PATIENT: Theresa Rose LOC: [facility] U#:[id number] AGE/SX: 37/F ROOM: RE11/09/[address]: Alec Ashton : 1985 BED: DIS: 11/09/2023 SPEC #: [id number] RECD: 11/09/23 17:11 STATUS: LANETTE REQ #: [id number] ARTEMIO: 11/09/23 12:[address]: Alec Ashton DEPT: [facility] Cytology RECD BY: Shell Meeks Tissues: 1 - CX/ENDOCX FOR PAP SMEARS Procedures: PAP THIN PREP/UVM Screening HPV DNA PROBE Comments: [id number] (CHLAMYDIA/GC)
[2023-11-11 14:35] LABS: Chlamydia Result Negative (Negative); GC Result Negative (Negative)
== END 2023-11-09 15:42 | disposition home or self-care (01) ==
LOC: NCHCN 15:41
PROVIDERS: PCP Family Medicine; Referring Provider Family Medicine; Visit Provider Family Medicine
DX: Z12.4 Encounter for screening for malignant neoplasm of cervix (principal); Z11.51 Encounter for screening for human papillomavirus (HPV); Z11.3 Encounter for screening for infections with a predominantly sexual mode of transmission
CPT/HCPCS: 87491; 87591; 88142; 87624